=== PATIENT | female | born 1955 | race Caucasian/White ===

== ENCOUNTER 2022-10-26 11:36 | Inpatient (IN) | payer MEDICARE, MEDICAID, SELFPAY ==
[2022-10-26 11:44] VITALS: PULSE 87; RESP 16; TEMP 36.6; O2SAT 97; BMI 34.9
[2022-10-26 11:59] VITALS: BP 158/108; PULSE 68; RESP 15; O2SAT 99
--- NOTE | 2022-10-26 12:02 | PC.NURSE ---
Patient 96hr rights reviewed with patient by Senior Database Programmer and Yury with [facility] Security @[id number]. All questions answered. Copy of 96hr rights given to patient and left at bedside. No needs other than a request for a cup of water which was given to patient as requested.
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
--- NOTE | 2022-10-26 12:41 | ECG_ITS ---
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 Measurements Intervals [place] Rate: 60 P: 12 DE: 154 QRS: 4 QRSD: 81 T: -10 QT: 411 QTc: 413 Interpretive Statements SINUS RHYTHM LOW QRS VOLTAGE IN PRECORDIAL LEADS [QRS DEFLECTION < 1.0 mV IN CHEST LEADS] MINIMAL VOLTAGE CRITERIA FOR LVH, CONSIDER NORMAL VARIANT [MEETS CRITERIA IN ONE OF: R(aVL), S(V1), R(V5), R(V5/V6)+S(V1)] SEPTAL MYOCARDIAL INFARCTION , PROBABLY OLD [40+ ms Q WAVE IN V1/V2] No previous ECG available for comparison Electronically Signed On 10-27-2022 6:53:45 CDT by Patrice Simons M.D. [id number]
[2022-10-26 13:33] LABS: Basophils % 0.5 %; Eosinophils # 0.1 10^3/uL (0.0-0.8); Eosinophils % 1.6 %; Hematocrit 47.5 % (37.0-47.0); Hemoglobin 15.5 g/dL (11.5-15.3); Lymphocytes # 2.3 10^3/uL (0.8-4.8); Lymphocytes % 26.8 %; Mean Corpuscular HGB Conc 32.6 g/dL (30.0-36.0); Mean Corpuscular Hemoglobin 28.8 pg (28.0-34.0); Mean Corpuscular Volume 88.1 fl (81-99); Mean Platelet Volume 13.5 fL (7.4-10.4); Monocytes # 0.7 10^3/uL (0.2-0.9); Monocytes % 7.8 %; Neutrophils % 63.1 %; Nucleated Red Blood Cells % 0 %; Platelet Count 205 10^3/cmm (130-400); Red Blood Count 5.39 10^6/uL (4.1-5.3); White Blood Count 8.7 10^3/uL (4.0-10.0)
[2022-10-26 13:46] LABS: Amphetamines Screen Urine Positive (Negative); Barbiturates Screen Urine Negative (Negative); Benzodiazepines Screen Urine Negative (Negative); Cocaine Screen Urine Negative (Negative); Opiate Screen Urine Negative (Negative); PCP Screen Urine Negative (Negative); THC Screen Urine Positive (Negative)
[2022-10-26 13:51] LABS: Alanine Aminotransferase 17 U/L (0-33); Albumin Level 3.9 g/dL (3.5-5.2); Alkaline Phosphatase 96 U/L (35-105); Anion Gap 15.9 (5-19); Aspartate Amino Transferase 21 U/L (0-32); Blood Urea Nitrogen 11 mg/dL (8-23); Calcium 9.1 mg/dL (8.5-10.5); Carbon Dioxide 31 mmol/L (22-29); Chloride 96 mmol/L (98-107); Globulin 2.9 g/dL (1.3-4.6); Glucose 107 mg/dL (65-115); Osmolality Calculated 290 mOsm/kg (285-295); Sodium 140 mmol/L (136-145); Total Bilirubin 0.4 mg/dL (0.15-1.2); Total Protein 6.8 g/dL (6.6-8.7)
[2022-10-26 14:03] LABS: Slide Review Slide Review Perform
[2022-10-26 14:04] LABS: Acetaminophen < 5.0 ug/mL (10-30); Alcohol Level < 10 mg/dL (0-10); Potassium 2.9 mmol/L (3.5-5.1)
[2022-10-26 14:07] LABS: Add Urine Microscopic? YES; Bilirubin Urine 1+ (Negative); Blood Urine Neg (Negative); Glucose Urine UA Norm (Normal); Ketones Urine Negative (Negative); Leukocyte Esterase Urine Negative (Negative); Nitrate Urine Negative (Negative); Protein Urine Trace (Negative); Urine Appearance Cloudy (CLEAR); Urine Color Dark Yellow (Yellow); Urobilinogen Urine 4 mg/dL (Negative); pH Urine 5 (5-7)
[2022-10-26 14:08] LABS: Bacteria Urine TRACE /hpf; Hyaline Casts Urine 0-4 /lpf; Mucus Urine 1+ /hpf; RBC Urine 0-4 /hpf (0-2); Squamous Epithelial Cell Urine 0-4 /hpf (0-5); WBC Urine 0-4 /hpf (0-5)
[2022-10-26 14:23] VITALS: BP 147/85; PULSE 82; RESP 18; O2SAT 94
--- NOTE | 2022-10-26 14:29 | PC.NURSE ---
Pt recieved sack lunch from nutrition room
[2022-10-26] MEDS: potassium chloride ER 20 mEq Tablet 40 MEQ PO (15:07)
[2022-10-26 17:24] VITALS: BP 153/95; PULSE 68; RESP 16; TEMP 36.4; O2SAT 98
[2022-10-26 18:08] VITALS: BP 152/98; PULSE 72; RESP 16; O2SAT 98
[2022-10-26] MEDS: atorvastatin 40 mg Tablet PO (21:33)
[2022-10-26] MEDS: amlodipine 10 mg Tablet PO (21:33)
[2022-10-26 22:00] VITALS: BP 117/82; PULSE 66; RESP 16; TEMP 37; O2SAT 92
[2022-10-27 06:00] VITALS: BP 135/82; PULSE 68; RESP 18; TEMP 36.6; O2SAT 97
[2022-10-27] MEDS: propranolol 40 mg Tablet 80 MG PO ×2 (08:20→18:40)
[2022-10-27] MEDS: hydroCHLOROthiazide 25 mg Tablet PO (08:20)
[2022-10-27] MEDS: pantoprazole DR 40 mg Tablet PO (08:20)
[2022-10-27] MEDS: aspirin 325 mg Tablet PO (08:20)
[2022-10-27] MEDS: cetirizine 10 mg Tablet PO (08:20)
[2022-10-27] MEDS: ibuprofen 600 mg Tablet PO (08:43)
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
[2022-10-27 14:00] VITALS: BP 116/73; PULSE 58; RESP 18; TEMP 36.6; O2SAT 96
[2022-10-27] MEDS: atorvastatin 40 mg Tablet PO (21:19)
[2022-10-27] MEDS: amlodipine 10 mg Tablet PO (21:19)
[2022-10-27 21:59] VITALS: BP 95/55; PULSE 68; RESP 18; TEMP 36.8; O2SAT 99
[2022-10-28 05:55] VITALS: BP 116/80; PULSE 63; RESP 17; TEMP 36.6; O2SAT 95
[2022-10-28 06:00] VITALS: BMI 34.9
[2022-10-28] MEDS: cetirizine 10 mg Tablet PO (08:37)
[2022-10-28] MEDS: hydroCHLOROthiazide 25 mg Tablet PO (08:37)
[2022-10-28] MEDS: aspirin 325 mg Tablet PO (08:37)
[2022-10-28] MEDS: pantoprazole DR 40 mg Tablet PO (08:37)
[2022-10-28] MEDS: ibuprofen 600 mg Tablet PO (10:56)
[2022-10-28 14:00] VITALS: BP 101/58; PULSE 76; RESP 16; TEMP 36.9; O2SAT 91
--- NOTE | 2022-10-28 16:54 | P.NPUPN_ITS ---
Subjective NPU Subjective: Patient presented today reporting that she is doing fine. She continues to demonstrate 0 insight into the impact that methamphetamine use has had in her presentation and continues to almost deny that it occurred. She continues to report that other people are using in large amounts as it that somehow justifies or subtracts from her situation. She continues to report that the situation had more to do with a break-up than her behavior while under the influence. Mental Status Exam MSE Comments: This is an obese white female looking slightly older than her stated age with limited grooming and eye contact. No abnormal movements or mild psychomotor agitation. Cooperative with exam in mild distress. Speech was mostly normal rate and volume. Mood described as okay but I do not know why I am here, affect slightly irritated. Thought process mostly organized but occasionally tangential. Thought content: Patient denied suicidal or homicidal ideation, there were no delusions reported but some concern for paranoia noted she denied any auditory or visual hallucination. Attention concentration was intact and memory was unreliable but none were formally tested. She alert and oriented x3. Insight, judgment and impulse control limited versus impaired. Vitals/I&O/Wt Last Vital Signs Temp 97.7 F 10/28/22 20:14 Pulse 62 10/28/22 20:14 Resp 16 10/28/22 20:14 BP 104/63 10/28/22 20:14 Pulse Ox 97 10/28/22 20:14 O2 Del Method Room Air 10/28/22 05:55 Weight last 48 hrs Weight 83.915 kg Data NPU 10/26/22 12:59 10/26/22 12:59 A&P Assessment and plan (1) Psychosis: (2) Hallucinations: (3) Methamphetamine dependence: (4) History of trauma: Plan This is a 67-year-old white female with a long history of mental health issues and addiction with no recent history of treatment with significant trauma and active addiction UDS positive for cannabis and amphetamines. 1. Continue current medications. 2. Encourage individual, group, and milieu therapy. 3. Continue q-15 minute checks for safety. 4. Encourage sober living treatment treatment after discharge at the highest level of care that she is willing to commit. Involuntary Hold Information 96 Hour Hold: 96 Hour Involuntary Admission: Yes 96 Hour Hold Ending Date: 11/02/22 96 Hour Hold Ending Time: 11:40 Attestations NPU Medical Necessity Statement*: Inpatient hospitalization is medically necessary and the clinically appropriate intervention, at this time. We will monitor medications and make changes as devi cated. Likely length of stay is 2-4 days. Coding Level of Care Code Acute Code for Chg Fwd Diagnoses Psychosis F29 Hallucinations R44.3 Methamphetamine dependence F15.20 History of trauma Z87.828
[2022-10-28 20:14] VITALS: BP 104/63; PULSE 62; RESP 16; TEMP 36.5; O2SAT 97
[2022-10-28] MEDS: atorvastatin 40 mg Tablet PO (20:30)
[2022-10-29] MEDS: ibuprofen 600 mg Tablet PO (07:33)
[2022-10-29] MEDS: pantoprazole DR 40 mg Tablet PO (08:56)
[2022-10-29] MEDS: cetirizine 10 mg Tablet PO (08:56)
[2022-10-29] MEDS: hydroCHLOROthiazide 25 mg Tablet PO (08:56)
[2022-10-29] MEDS: aspirin 325 mg Tablet PO (08:56)
[2022-10-29] MEDS: propranolol 40 mg Tablet 80 MG PO ×2 (08:56→21:09)
[2022-10-29 13:56] VITALS: BP 136/80; PULSE 60; RESP 17; TEMP 36.8; O2SAT 97
--- NOTE | 2022-10-29 15:39 | P.NPUPN_ITS ---
Subjective NPU Subjective: Patient is here today continuing to report that she feels that she is doing okay and that outpatient services should be appropriate and sufficient. She does plan to do services closer to where she lives which we agreed would be fine ultimately but we continue to stress the need for sober living treatment and appropriate addressing of her addiction issues. She worked with the social work team for appropriate discharge planning and follow-up. We discussed the likelihood of discharge tomorrow. Mental Status Exam MSE Comments: This is an obese white female looking slightly older than her stated age with limited grooming and eye contact. No abnormal movements or mild psychomotor agitation. Cooperative with exam in mild distress. Speech was mostly normal rate and volume. Mood described as fine, I want to go home, affect slightly irritated. Thought process mostly organized but occasionally tangential. Thought content: Patient denied suicidal or homicidal ideation, there were no d elusions reported but some concern for paranoia noted she denied any auditory or visual hallucination. Attention concentration was intact and memory was unreliable but none were formally tested. She alert and oriented x3. Insight and judgment limited and impulse control limited versus impaired. Vitals/I&O/Wt Last Vital Signs Temp 98.3 F 10/29/22 13:56 Pulse 60 10/29/22 13:56 Resp 17 10/29/22 13:56 BP 136/80 10/29/22 13:56 Pulse Ox 97 10/29/22 13:56 O2 Del Method Room Air 10/28/22 05:55 Data NPU 10/26/22 12:59 10/26/22 12:59 A&P Assessment and plan (1) Psychosis: (2) Hallucinations: (3) Methamphetamine dependence: (4) History of trauma: Plan This is a 67-year-old white female with a long history of mental health issues and addiction with no recent history of treatment with significant trauma and active addiction UDS positive for cannabis and amphetamines. 1. Continue current medications. 2. Encourage individual, group, and milieu therapy. 3. Continue q-15 minute checks for safety. 4. Encourage sober living treatment treatment after discharge at the highest level of care that she is willing to commit. Involuntary Hold Information 96 Hour Hold: 96 Hour Involuntary Admission: Yes 96 Hour Hold Ending Date: 11/02/22 96 Hour Hold Ending Time: 11:40 Attestations NPU Medical Necessity Statement*: Inpatient hospitalization is medically necessary and the clinically appropriate intervention, at this time. We will monitor medications and make changes as indicated. Likely length of stay is 1-3 days. Coding Level of Care Code Acute Code for g Fwd Diagnoses Psychosis F29 Hallucinations R44.3 Methamphetamine dependence F15.20 History of trauma Z87.828
[2022-10-29 20:41] VITALS: BP 127/83; PULSE 68; RESP 18; TEMP 37; O2SAT 97
[2022-10-29] MEDS: atorvastatin 40 mg Tablet PO (21:10)
[2022-10-30 06:00] VITALS: BP 119/68; PULSE 68; RESP 16; TEMP 36.7; O2SAT 96
[2022-10-30] MEDS: propranolol 40 mg Tablet 80 MG PO (08:52)
[2022-10-30] MEDS: hydroCHLOROthiazide 25 mg Tablet PO (08:52)
[2022-10-30] MEDS: pantoprazole DR 40 mg Tablet PO (08:52)
[2022-10-30] MEDS: aspirin 325 mg Tablet PO (08:52)
[2022-10-30] MEDS: cetirizine 10 mg Tablet PO (08:52)
[2022-10-30] MEDS: ibuprofen 600 mg Tablet PO (09:57)
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
[2022-10-30 10:35] VITALS: BP 119/68; PULSE 68; RESP 16; TEMP 36.7; O2SAT 96
--- NOTE | 2022-10-30 11:00 | DCPLANNER ---
IMM was printed and explained and give to pt and copy put in file
== END 2022-10-30 13:14 | disposition home or self-care (01) | DRG 885 ==
LOC: ER 16:20 → NP 16:34
PROVIDERS: Admitting Provider Psychiatry & Neurology Psychiatry; Emergency Provider Family Medicine; PCP Orthopaedic Surgery; Visit Provider Psychiatry & Neurology Psychiatry
DX: F29 Unspecified psychosis not due to a substance or known physiological condition (principal); F15.20 Other stimulant dependence, uncomplicated; F17.210 Nicotine dependence, cigarettes, uncomplicated; Z81.8 Family history of other mental and behavioral disorders; Z81.3 Family history of other psychoactive substance abuse and dependence; Z62.810 Personal history of physical and sexual abuse in childhood
CPT/HCPCS: 12345; 36415; 80053; 80306; 80307; 81001; 85025; 93005; 97165; 99238; 99285